=== PATIENT | female | born 1975 | race Caucasian/White ===

== ENCOUNTER → 2023-05-26 09:44 | Outpatient (REF) | payer OTHER, SELFPAY | LOC: RAD 09:44 | PROVIDERS: ATTENDING PHYSICIAN Obstetrics & Gynecology; FAMILY PHYSICIAN Family Medicine | DX: R10.2 Pelvic and perineal pain (principal) | CPT/HCPCS: 76830; 76856 ==

== ENCOUNTER 2023-08-03 00:14 | Emergency (ER) | payer SELFPAY ==
[2023-08-03 00:17] VITALS: BP 145/85; BMI 19.9
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
== END 2023-08-03 04:15 | disposition home or self-care (01) ==
LOC: EMR 00:14
PROVIDERS: EMERGENCY PHYSICIAN Emergency Medicine
DX: Z02.79 Encounter for issue of other medical certificate (principal); R05.9 Cough, unspecified; R45.1 Restlessness and agitation; R09.89 Other specified symptoms and signs involving the circulatory and respiratory systems; E11.9 Type 2 diabetes mellitus without complications; R03.0 Elevated blood-pressure reading, without diagnosis of hypertension; E03.9 Hypothyroidism, unspecified; F31.9 Bipolar disorder, unspecified; F32.A Depression, unspecified; F41.9 Anxiety disorder, unspecified; D64.9 Anemia, unspecified; Z87.891 Personal history of nicotine dependence; Z79.4 Long term (current) use of insulin; Z88.5 Allergy status to narcotic agent; Z88.0 Allergy status to penicillin; Z91.048 Other nonmedicinal substance allergy status
CPT/HCPCS: 99284

== ENCOUNTER 2023-09-23 20:22 | Emergency (ER) | payer SELFPAY ==
[2023-09-23 20:26] VITALS: BP 158/91; BMI 19.7
[2023-09-23 20:37] LABS: Glucose - Point of Care 173 mg/dl (70-99)
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
== END 2023-09-23 21:14 ==
LOC: EMR 20:22
PROVIDERS: EMERGENCY PHYSICIAN Student in an Organized Health Care Education/Training Program
DX: Z02.79 Encounter for issue of other medical certificate (principal); E11.65 Type 2 diabetes mellitus with hyperglycemia; Z65.3 Problems related to other legal circumstances; F31.9 Bipolar disorder, unspecified; F41.9 Anxiety disorder, unspecified; F32.A Depression, unspecified; E03.9 Hypothyroidism, unspecified; D64.9 Anemia, unspecified; Z87.891 Personal history of nicotine dependence; Z88.5 Allergy status to narcotic agent; Z88.0 Allergy status to penicillin; Z91.048 Other nonmedicinal substance allergy status
CPT/HCPCS: 99283; 82962

== ENCOUNTER → 2024-01-16 13:52 | Outpatient (REF) | payer OTHER, SELFPAY | LOC: WDC 13:52 | PROVIDERS: ATTENDING PHYSICIAN Obstetrics & Gynecology; FAMILY PHYSICIAN Family Medicine | DX: Z12.31 Encounter for screening mammogram for malignant neoplasm of breast (principal) | CPT/HCPCS: 77063; 77067 ==

== ENCOUNTER → 2024-06-14 15:02 | Outpatient (REF) | payer OTHER, SELFPAY | LOC: HWRAD 15:02 | PROVIDERS: ATTENDING PHYSICIAN Family Medicine | DX: M25.449 Effusion, unspecified hand (principal) | CPT/HCPCS: 73130 ==

== ENCOUNTER 2024-07-16 01:53 | Emergency (ER) | payer OTHER, SELFPAY ==
[2024-07-16 02:02] VITALS: BP 108/67; BMI 20.8
[2024-07-16 02:05] LABS: Glucose - Point of Care 100 mg/dl (70-99)
--- NOTE | 2024-07-16 02:36 | ED.GENMED ---
History of Present Illness
General
Chief Complaint: Blood Sugar Problem
Source: patient and police
Exam Limitations: none
Time Seen by Provider: 07/16/24 02:25
Nursing documentation reviewed up to this point in time: agreed with
History of Present Illness
History of Present Illness:
48-year-old female with history as noted presents to the ER for medical assessment prior to incarceration. Patient arrives in police custody�per police was arrested this evening and was requesting that her blood sugar be checked because she has a
history of diabetes. Patient says that she was drinking tonight about 2 glasses of wine. She says that she had a minor stumble and hurt her right wrist but denies any other injuries and denies other acute complaints. She says she is a diabetic
and uses 11 units of Lantus in the evenings with a sliding scale of insulin during the day. She said she has not eaten since earlier today. She did complain of feeling depressed to nurse during triage denies active suicidality.
Past History
Past History
ED Past Medical History: IDDM, Hypothyroidism, Psychiatric (a/d, Bipolar) and Other (Anemia)
ED Past Surgical History:
Social History
Tobacco: Former smoker
Alcohol: Former (occasional glass of wine)
Personal:
Living: with family
Employment: Employed
Family History
Family History: Negative Diabetes, Hypertension or CAD
Review of Systems
Review of Systems
All Other Systems: ROS reviewed and negative except as documented in HPI and ROS
Cardiac: Denies chest pain
ABD/GI: Denies abdominal pain or vomiting
Musculoskeletal: Reports joint pain; Denies neck pain or back pain
Neurological: Denies headache
Phy Exam
Physical Exam
Physical Exam:
General: Awake, alert, intoxicated but not in distress
Head: Normocephalic, atraumatic
Eyes: Conjunctiva normal, sclera anicteric, pupils equal round and reactive to light bilaterally
Throat: Airway intact, handling secretions
Neck: Trachea midline, no cervical spine tenderness
Back: No signs of trauma to the back or flank
Lungs: Clear to auscultation bilaterally, no wheezing, rales, rhonchi
Heart: Regular rate and rhythm, no murmurs, gallops, or rubs
Abd: Soft, non distended, nontender
Neuro: Cranial nerves grossly intact, speech fluid, no gross motor or sensory deficit
Skin: No lacerations or abrasions noted
Extremities: Patient has some mild tenderness over the ulnar styloid on the right wrist but no snuffbox tenderness, no swelling of the wrist, reasonable range of motion with minimal pain; rest of extremities appear atraumatic and are nontender; good
pulses in all extremities
Scores
Heart Failure Risk
Heart Failure Risk Score: Not Applicable
Heart Score for Chest Pain Patients
STEMI patient?: Not applicable
Withdrawal Assessment of Alcohol
Withdrawal Assessment Completed?: Not applicable
Course
Orders/Labs/Results
Orders:
Orders
07/16/24 02:12
1:1 Observation - Suicide/ Violent Behavior As Directed
Crisis Consult Urgent
Reason for Consult: +SI
07/16/24 02:34
Encourage PO Hydration-Treatme ONCE
CR Wrist - Right Min 3 Views Urgent
Comment:
Reason For Exam: right wrist pain s/p fall
Abnormal Lab Results
07/16/24
02:03
POC Glucose 100 H mg/dl
(70-99)
Vital Signs
Initial and Last Documented VS:
Initial Vital Signs
Temp Pulse Resp BP Pulse Ox
36.6 C 74 16 108/67 96
07/16/24 02:02 07/16/24 02:02 07/16/24 02:02 07/16/24 02:02 07/16/24 02:02
Last Documented Vital Signs
Temp Pulse Resp BP Pulse Ox
36.6 C 74 16 108/67 96
07/16/24 02:02 07/16/24 02:02 07/16/24 02:02 07/16/24 02:02 07/16/24 02:02
MDM/Problems Addressed
Differential Diagnosis Includes:
Wrist pain: Fracture, sprain
MDM/Problems Addressed:
48-year-old female presents to the emergency room intoxicated and in police custody that she presents for medical evaluation prior to incarceration. Only complaint is some minor wrist pain after a stumble tonight but denies any other injuries or
acute complaints. She was requesting her blood sugar be checked as she has a history of diabetes and has not eaten since earlier today. Vitals and exam as above. Her glucose is 100. Provided p.o. food. Will check x-ray of the wrist. Reassess
after the above.
We did have a crisis speak to the patient and she reported some depression in triage. Denies active suicidality. Crisis provided outpatient resources although it sounds like patient will be incarcerated after ER visit.
X-ray reviewed by me linear hyperdensity in the distal radius but no cortical interruption and patient is really more tender over the ulnar styloid on exam so clinically suspect this is not a fracture. Will place in volar splint for support.
Patient was able to eat here and took p.o. fluids. Stable for discharge into police custody.
Chronic conditions affecting care:
Diabetes
*Radiology
Radiology exam reviewed: preliminary read by ED provider
*Pulse Oximetry
Patient hypoxic: no
*Critical Care Note
Total Time (30-74mins, 75-104mins- exclusive of procedures): Not Applicable
Data Reviewed
Source: patient, records and police
Patient Management
Discussion with other providers: Other (Discussed with crisis team)
ED Attending Note
-
Portions of this chart may have been created with voice recognition software.� Occasional wrong word or��sound alike� substitutions may have occurred due to the inherent limitations of voice recognition software.
Discharge Plan
Departure
Patient Disposition: Home (Routine Discharge)
Date of Disposition: 07/16/24
Time of Disposition: 03:03
Patient with high blood pressure during this ER visit?: No
Discharge Problem:
Alcohol intoxication, Encounter for medical screening examination, Sprain of wrist, Depression
Instructions: Common Wrist Injuries ED, Alcohol intoxication - ED discharge instructions
Prescriptions:
No Action
levothyroxine 25 MCG tablet
25 mcg PO DAILY
insulin glargine [Lantus U-100 Insulin] 100 unit/mL Solution
11 unit SC BID
insulin lispro [Humalog KwikPen Insulin] 100 unit/mL Insulin Pen
See Rx Instructions .ROUTE .COMPLEX
Rx Instructions:
5 times daily sliding scale
Activity Restrictions/Additional Instructions:
Patient is medically stable for incarceration. She should have routine medical follow-up while incarcerated/after incarceration.
Thank you for visiting the Emergency Department at [facility].
1. Please schedule a follow up appointment as directed. Call first thing tomorrow morning to make an appointment.
2. If indicated, please take your medications as instructed and indicated on discharge paperwork.
3. If any of your symptoms do not improve, or persist, or become more severe within 6-12 hours, please return to the emergency department for further care.
4. Please return to the emergency department if you develop a headache, neck pain/stiffness, fever greater than 100.4F, chest pain, shortness of breath, persistent nausea, vomiting, slurred speech, difficulty walking, numbness/tingling, weakness,
signs of infection or any other symptoms that are worrisome to you.
Please call [phone] if you have any questions.
Interventions
Interventions:
*Risk Screen - Suicide Last Done: 07/16/24 02:02
*General Assessment Last Done: 07/16/24 02:02
*Neglect/Abuse Screening Last Done: 07/16/24 02:02
*ED- Fall Risk Assessment Last Done: 07/16/24 02:02
Discharge Date and Time
Print Language: ROMANIAN
[2024-07-16 03:13] VITALS: BP 114/75
== END 2024-07-16 03:40 | disposition home or self-care (01) ==
LOC: EMR 01:53
PROVIDERS: EMERGENCY PHYSICIAN Emergency Medicine; FAMILY PHYSICIAN Family Medicine
DX: F10.129 Alcohol abuse with intoxication, unspecified (principal); S63.501A Unspecified sprain of right wrist, initial encounter; F31.9 Bipolar disorder, unspecified; W19.XXXA Unspecified fall, initial encounter; E11.9 Type 2 diabetes mellitus without complications; E03.9 Hypothyroidism, unspecified; D64.9 Anemia, unspecified; Z65.3 Problems related to other legal circumstances; Z87.891 Personal history of nicotine dependence
CPT/HCPCS: 99285; 73110; 82962